=== PATIENT | male | born 1945 | race Caucasian/White ===

== ENCOUNTER → 2022-12-29 | Outpatient (CLI) | payer MEDICARE | END | disposition home or self-care (01) | LOC: RAH 07:44 | PROVIDERS: ATTEND Internal Medicine | DX: I70.0 Atherosclerosis of aorta (principal); F17.211 Nicotine dependence, cigarettes, in remission | CPT/HCPCS: 76775 ==

== ENCOUNTER 2023-05-11 06:18 | Day surgery (SDC) | payer MEDICARE ==
[2023-05-09 10:58] VITALS: BP 150/80; PULSE 60; RESP 18
[2023-05-09 11:04] LABS: BASOPHILS # (AUTO) 0.04 K/uL (0.00-0.20); BASOPHILS % (AUTO) 0.7 % (0.0-5.0); EOSINOPHILS # (AUTO) 0.04 K/uL (0.00-0.70); EOSINOPHILS % (AUTO) 0.7 % (0.0-8.0); HEMATOCRIT 39.8 % (42-54); IMMATURE GRANULOCYTE ABSOLUTE 0.03 K/uL (0-1); LYMPHOCYTES # (AUTO) 1.2 K/uL (1.0-4.8); LYMPHOCYTES % (AUTO) 19.8 % (21.0-51.0); MEAN CORPUSCULAR HEMOGLOBIN 30.1 pg (27.0-33.0); MEAN CORPUSCULAR HGB CONC 31.4 g/dL (32.0-36.0); MEAN CORPUSCULAR VOLUME 95.9 fL (79-99); MONOCYTES # (AUTO) 0.5 K/uL (0.1-1.0); MONOCYTES % (AUTO) 8.8 % (3.0-13.0); NEUTROPHILS # (AUTO) 4.2 K/uL (1.8-7.7); NEUTROPHILS % (AUTO) 69.5 % (40.0-77.0); PLATELET COUNT (AUTO) 166 K/uL (130-400); RED BLOOD CELL COUNT(AUTO) 4.15 MIL/uL (4.50-6.20); RED CELL DISTRIBUTION WIDTH 14.8 % (11.0-15.5)
[2023-05-09 11:07] LABS: CREATININE 0.9 mg/dL (0.5-1.5); POTASSIUM 4.4 mmol/L (3.5-5.1)
[2023-05-09 11:28] LABS: INR < 0.93 (0.85-1.15); PROTHROMBIN TIME 10.4 SEC (9.6-11.6)
[2023-05-09 11:30] LABS: PARTIAL THROMBOPLASTIN TIME 26.2 SEC (26.3-35.5)
[~2023-05-11] VITALS: Ht 177.8 cm; Wt 96.6 kg
[2023-05-11] VITALS (12 sets, daily range): BP systolic 129–156; BP diastolic 67–94; PULSE 61–72; RESP 15–17
[~2023-05-11 06:18] MED LIST: APIX5TAB PO; CETI10TA57 PO; FOLIC ACID PO; METH2.5T6 PO; METO-391 PO; OMEP40CA21 PO; PRED5TAB PO; ROSU40TA21 PO; SALBUTAMOL IH
[2023-05-11] MEDS ORDERED: 0.9%NACL 1000ML 1,000 ML IV ONE (07:04)
[2023-05-11] MEDS ORDERED: MEPERIDINE-PF 25 MG/ML SYG ONE ×3 (09:33→10:06)
[2023-05-11] MEDS ORDERED: IOHEXOL-350 50ML VIAL IV ONE (09:33)
[2023-05-11] MEDS ORDERED: BUPIVACAINE/PF 0.25% 30ML VIAL IJ ONE (09:33)
[2023-05-11] MEDS ORDERED: MIDAZOLAM HCL 1 MG/ML 2ML VIAL ONE ×3 (09:33→10:06)
[2023-05-11] MEDS ORDERED: LIDOCAINE HCL 1% MDV 50ML VIAL ONE (09:33)
[2023-05-11] MEDS ORDERED: CEFAZOLIN SODIUM 1 GM VIAL ONE (09:34)
[2023-05-11] MEDS ORDERED: METOPROLOL TARTRATE 1 MG/ML 5ML VIAL IV ONE (10:20)
[2023-05-11] MEDS ORDERED: BACITRACIN 1 EACH PACKET TP ONE (10:46)
[2023-05-11] MEDS ORDERED: ACETAMINOPHEN WITH CODEINE 1 TAB TAB PO PRN ×2 (11:30)
[2023-05-11] MEDS ORDERED: CEFAZOLIN SODIUM 1 GM VIAL IVPB ONE (16:00)
== END 2023-05-11 16:45 | disposition home or self-care (01) ==
LOC: DAH 06:18
PROVIDERS: ATTEND Internal Medicine Cardiovascular Disease
DX: I49.5 Sick sinus syndrome (principal); I48.0 Paroxysmal atrial fibrillation; I44.30 Unspecified atrioventricular block; I10 Essential (primary) hypertension; J45.909 Unspecified asthma, uncomplicated; M06.9 Rheumatoid arthritis, unspecified; E78.5 Hyperlipidemia, unspecified; G47.33 Obstructive sleep apnea (adult) (pediatric); Z79.01 Long term (current) use of anticoagulants; Z79.899 Other long term (current) drug therapy; Z79.82 Long term (current) use of aspirin; Z98.890 Other specified postprocedural states; Z95.5 Presence of coronary angioplasty implant and graft; Z92.3 Personal history of irradiation; Z87.891 Personal history of nicotine dependence; Z82.49 Family history of ischemic heart disease and other diseases of the circulatory system; Z85.46 Personal history of malignant neoplasm of prostate
CPT/HCPCS: 80048; 85025; 85610; 85730; 36415; 93005; 33229; 33225; 71045; C1769 ×2; C1900; C2621; C1894; J0690 ×2; J3490 ×2; J7030; J0665; J2250 ×3; J2175 ×3; Q9967; A4215; A4222; A4221; A4663; A4216; A4606; A4223 ×3; 99156; 99157